=== PATIENT | male | born 1990 | race African-American/Black ===

== ENCOUNTER 2023-06-13 17:38 | Emergency (ER) | payer OTHER ==
[~2023-06-13] VITALS: Ht 177.8 cm; Wt 90.5 kg
[2023-06-13 17:56] VITALS: BP 131/87; PULSE 104; RESP 18; O2SAT 100
[2023-06-13] MEDS ORDERED: CYCL-837 PO (19:33)
[2023-06-13] MEDS ORDERED: IBUP-1456 PO (19:33)
== END 2023-06-13 19:49 | disposition home or self-care (01) ==
LOC: ER 17:38
DX: M79.605 Pain in left leg (principal); S82.92XD Unspecified fracture of left lower leg, subsequent encounter for closed fracture with routine healing; X58.XXXD Exposure to other specified factors, subsequent encounter